=== PATIENT | female | born 1960 | race Caucasian/White ===

== ENCOUNTER 2024-10-23 17:44 | Outpatient (REF) | payer BC, SELFPAY | END 2024-10-23 17:45 | disposition home or self-care (01) | LOC: LBN 17:44 | PROVIDERS: PCP Internal Medicine; Visit Provider Obstetrics & Gynecology | DX: R35.0 Frequency of micturition (principal); R82.89 Other abnormal findings on cytological and histological examination of urine | CPT/HCPCS: 87086 ==

== ENCOUNTER 2024-11-21 01:06 | Outpatient (CLI) | payer BC, SELFPAY ==
--- NOTE | 2024-11-21 11:18 | DI.CT_ITS ---
Exam(s) CT ABDOMEN PELVIS W EXAM: CT ABDOMEN PELVIS W CLINICAL HISTORY: vulvar mass, N90.89-Other specified noninflammatory disorders of vulva and TECHNIQUE: Imaging Protocol: Axial computed tomography images with coronal and sagittal reformatted images were created and reviewed. CONTRAST MATERIAL: Intravenous: Omnipaque 350 Contrast volume:75 mL Oral: Yes COMPARISON: US US SOFT TISS BUTTOCK/PERINEUM from 11/13/2024 FINDINGS: ABDOMEN: Lung Bases: No acute abnormality. Liver: Normal density. There are few tiny fluid attenuation lesions in the liver most consistent with cysts. No suspicious hepatic lesions are seen. Portal, Superior Mesenteric, and Splenic Veins: Unremarkable. Gallbladder and Biliary Tract: Status post cholecystectomy. No biliary ductal dilatation. Pancreas: Normal density, no abnormal calcifications or inflammatory process. Spleen: Normal. Adrenals: No masses seen. Kidneys: Normal size, contour and axis. No radiodense stones or obstructive uropathy. Small left parapelvic cysts. No follow-up is recommended. Abdominal Aorta: Abdominal portion non-dilated. Atherosclerotic calcification is present. Bowel: There are diverticula in the colon, but no evidence of acute diverticulitis. No evidence of bowel obstruction or bowel wall thickening. There is no evidence of appendicitis. Peritoneal Cavity: No ascites, collection or mesenteric inflammatory response. No free air. Lymph Nodes: Within normal limits. Bones: Within normal limits for the patient's age. Soft Tissues: Unremarkable. PELVIS: Bladder: Symmetric distention, no gross wall thickening. Reproductive Organs: There is a 2.3 x 1.0 cm solid mass in the right vulva corresponding to the finding on the ultrasound in the palpable abnormality. No other masses are seen. No inguinal adenopathy is present. Lymph Nodes: Within normal limits. Bones: Within normal limits for the patient's age. IMPRESSION: 1. 2.3 x 1.0 cm solid mass in the right vulva consistent with the finding seen on the ultrasound in the palpable abnormality. The finding is nonspecific and includes benign and malignant causes as described on the prior ultrasound examination. 2. No evidence of abdominal or pelvic metastatic disease. 3. No acute abdominal or pelvic process. RADIATION DOSE DELIVERED: 739.16mGy.cm Total DLP DATA REPOSITORY: All CT scans at this facility are submitted to the National Radiology Data Registry (NRDR) Dose Index Registry (DIR) with the [employer] ([employer]). RADIATION OPTIMIZATION: All CT scans at this facility use at least one of these dose optimization techniques: automated exposure control; mA and/or kV adjustment per patient size (includes targeted exams where dose is matched to clinical indication); or iterative reconstruction.
[2024-11-21] MEDS: Barium Sulfate 2% W/V-Creamy Vanilla Smoothie 450 ML BTL PO (12:06)
[2024-11-21] MEDS: Barium Sulfate 2% W/V-Berry Smoothie 450 ML BTL PO (12:06)
[2024-11-21 13:19] LABS: CREATININE 0.9 mg/dL (0.55-1.02); Estimated GFR 71.83 (mL/min/1.73m2)
[2024-11-21] MEDS: Omnipaque 350 MG/ML 500 ML BTL-Imaging package 75 ML IJ (13:53)
[2024-11-21] MEDS: Normal Saline - Diluent 50 ML VIAL IJ (13:54)
== END 2024-11-21 01:26 ==
LOC: DI 01:06
PROVIDERS: PCP Internal Medicine; Visit Provider Obstetrics & Gynecology
DX: Z91.89 Other specified personal risk factors, not elsewhere classified (principal); R93.89 Abnormal findings on diagnostic imaging of other specified body structures
CPT/HCPCS: 74177; 82565

== ENCOUNTER 2025-01-13 02:58 | Outpatient (CLI) | payer BC, SELFPAY ==
[2025-01-13 10:16] LABS: HCT 42.9 % (36.0-46.0); HGB 14.4 g/dL (11.2-15.7); MCH 29.4 pg (27.0-33.0); MCHC 33.6 % (32.0-36.0); MCV 88 fL (80-95); MPV 10.8 fL (8.0-11.0); Platelet Count 234 10^3/uL (130-400); RBC 4.90 10^6/uL (3.93-5.22); RDW 12.8 % (11.7-14.6); RDW-SD 40.5 fL; WBC 6.47 10^3/uL (4.4-10.8)
[2025-01-13 12:00] LABS: TSH (W/Ref FT4) 2.06 uIU/mL (0.36-3.74)
== END 2025-01-13 02:59 | disposition home or self-care (01) ==
LOC: LBO 02:58
PROVIDERS: PCP Internal Medicine; Visit Provider Obstetrics & Gynecology
DX: Z01.818 Encounter for other preprocedural examination (principal); E03.9 Hypothyroidism, unspecified
CPT/HCPCS: 36415; 85027; 86850; 86900; 86901; 84443